=== PATIENT | female | born 1995 | race Caucasian/White ===

== ENCOUNTER 2020-09-22 18:24 | Emergency (ER) | payer OTHER, SELFPAY ==
[2020-09-22 18:44] VITALS: BP 109/71; PULSE 83; RESP 16; TEMP 37.2; O2SAT 99
--- NOTE | 2020-09-22 18:55 | ED.WOUNDLAC ---
HPI - Wound/Laceration General Chief Complaint: Wound/Laceration Stated Complaint: cut right arm Time Seen by Provider: 09/22/20 18:55 Source: patient, RN notes reviewed and old records reviewed Mode of arrival: ambulatory Limitations: no limitations History of Present Illness HPI narrative: 24-year-old female who presents to [facility] accompanied by with complaints of dog bite to her right inner upper arm. Patient states she was trying to break up a fight between her dog and her [id number] dog and was bitten by her dog about 1 hour prior to arrival. Patient states that her tetanus is up to date and dog's vaccinations are also up to date. Patient has linear 1.5cm by 0.5cm laceration to right inner upper arm, small amount of bloody drainage from wound. Onset (ago): hour(s) (1) Extremity Location: Right: arm (upper inner arm) Place: home Patient tetanus UTD: Yes Context: accidental (dog bite) Associated symptoms: none Treatments prior to arrival: bandage Related Data Allergies Allergy/AdvReac Type Severity Reaction Status Date / Time PCN Allergy Mild Rash Uncoded 09/22/20 18:49 Review of Systems Review of Systems: Narrative: CONSTITUTIONAL: Denies fever, chills, or sweats. EYES: Denies visual changes, redness, or discharge. ENT: Denies rhinorrhea, congestion, sore throat, or otalgia. CARDIOVASCULAR: Denies chest pain, palpitations, or edema. RESPIRATORY: Denies cough or dyspnea. GASTROINTESTINAL: Denies abdominal pain, nausea, vomiting, or diarrhea. GENITOURINARY: Denies dysuria or hematuria. SKIN: Denies rash or itching.positive for laceration to right upper inner arm from dog bite MUSCULOSKELETAL: Denies back pain, joint pain, or myalgia. NEUROLOGIC: Denies headache, numbness, or weakness. PSYCHIATRIC: Denies anxiety or depression. All systems reviewed & are unremarkable except as noted in HPI and below PMFSH Past Medical History Medical History (Updated 09/23/20 @ 16:04 by Abbey Rankin NP) No pertinent past medical history Surgical History Surgical History (Updated 09/23/20 @ 16:04 by Abbey Rankin NP) No history of previous surgery Family History Family History (Updated 09/26/20 @ 08:57 by Abbey Rankin NP) Other No significant family history Social History Social History (Updated 09/23/20 @ 16:05 by Abbey Rankin NP) Smoking status: Never smoker Alcohol intake: current Alcohol use details: social Substance use: never Living arrangements: with family Occupation/Education: occupation 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 There is no relevant family history pertinent to the presenting complaint Exam Narrative: Exam Narrative: GENERAL: Well-appearing, well-nourished, and in no acute distress. HEAD: Normocephalic, atraumatic. EYES: PERRLA and EOMI. ENT: Nares clear, no rhinorrhea or epistaxis. Mucous membranes moist. NECK: Supple.no lymphadenopathy CHEST: Clear to auscultation. No respiratory distress.SAO2 99% on room air HEART: Regular rate and rhythm. No murmur heard. Normal peripheral pulses. ABDOMEN: Soft, nontender, nondistended, normal active bowel sounds. EXTREMITIES: Normal range of motion. No edema. SKIN: Warm, dry, no rash.1.5cX 0.5cm linear laceration to right upper inner arm from dog bite, no acute bleeding noted, wound edges pink with no debris noted NEURO: No focal deficits. Alert and oriented x3. Course Vital Signs Vital signs: Vital Signs Temperature 37.2 C 09/22/20 18:44 Pulse Rate 83 09/22/20 18:44 Respiratory Rate 16 09/22/20 18:44 Blood Pressure 109/71 09/22/20 18:44 Pulse Oximetry 99 09/22/20 18:44 Temperature 37.2 C 09/22/20 18:44 Pulse Rate 83 09/22/20 18:44 Respiratory Rate 16 09/22/20 18:44 Blood Pressur
--- NOTE | 2020-09-22 19:39 | PC.NURSE ---
1937- Pt states, last tetanus was 3 years ago.
== END 2020-09-22 19:37 | disposition home or self-care (01) ==
PROVIDERS: Emergency Provider Registered Nurse
DX: S41.111A Laceration without foreign body of right upper arm, initial encounter (principal); W54.0XXA Bitten by dog, initial encounter; Y99.9 Unspecified external cause status
CPT/HCPCS: 99213; G0463